=== PATIENT | female | born 1985 | race Caucasian/White ===

== ENCOUNTER 2021-01-28 20:19 | Emergency (ER) | payer BC ==
[~2021-01-28] VITALS: Ht 162.6 cm; Wt 85.0 kg
--- NOTE | 2021-01-28 20:30 | PHYS DOC ---
Past Medical History Past Medical History: No Pertinent History General Adult EDM: Chief Complaint: ALCOHOL INTOXICATION HPI: HPI: Patient is a 35-year-old female presenting via EMS for drug abuse. Patient was at local [employer] event at [facility] and ate numerous tacos and drank numerous alcoholic beverages. at bedside who is primary historian, states that patient smoked a cigar that was " laced with something" and ever since smoking the cigar has been altered. She has had numerous episodes of nonbloody nonbilious emesis. was immediately concerned and called EMS for transfer to our facility for evaluation. On arrival, patient actively throwing up. Denies being in any pain, no falls or trauma. She is otherwise healthy and does not take any medications on a daily basis. Review of Systems: Review of Systems: Fourteen body systems of review of systems have been reviewed. See HPI for pertinent positives and negative responses, other ellis all other systems are n egative, non-pertinent or non-contributory Heart Score: C/O Chest Pain: No HEART Score for Chest Pain: HEART Score for Chest Pain Response (Comments) Value History Slighlty/Non-Suspicious 0 ECG Normal 0 Age < 45 0 Risk Factors No Risk Factors 0 Total 0 Risk Factors: Risk Factors: DM, Current or recent (<one month) smoker, HTN, HLP, family history of CAD, obesity. Risk Scores: Score 0 - 3: 2.5% MACE over next 6 weeks - Discharge Home Score 4 - 6: 20.3% MACE over next 6 weeks - Admit for Clinical Observation Score 7 - 10: 72.7% MACE over next 6 weeks - Early Invasive Strategies Physical Exam: PE: Constitutional: Age-appropriate female actively vomiting on arrival, appears under the influence of unknown drug HENT: Normocephalic, atraumatic, bilateral external ears normal, oropharynx moist, no oral exudates, nose normal. Eyes: PERRLA, EOMI, conjunctiva normal, no discharge. Neck: Normal range of motion, no tenderness, supple, no stridor. Cardiovascular: Heart rate regular, sinus rhythm, no murmurs rubs or gallops Lungs & Thorax: Bilateral breath sounds clear to auscultation Abdomen: Bowel sounds normal, soft, no tenderness, no masses, no pulsatile masses. Nonsurgical abdomen, no peritoneal signs Skin: Warm, dry, no erythema, no rash. Back: No tenderness, no CVA tenderness. Extremities: No tenderness, no cyanosis, no clubbing, ROM intact, no edema. Neurologic: Alert and oriented to person only, cranial nerves II through XII intact, normal motor & sensory function, no focal deficits noted. Psychologic: Affect normal, judgement normal, mood normal. Current Patient Data: Labs: Laboratory Tests Test 01/28/21 20:44 01/28/21 21:20 White Blood Count 8.8 x10^3/uL Red Blood Count 4.39 x10^6/uL Hemoglobin 13.8 g/dL Hematocrit 39.4 % Mean Corpuscular Volume 90 fL Mean Corpuscular Hemoglobin 31 pg Mean Corpuscular Hemoglobin Concent 35 g/dL Red Cell Distribution Width 12.0 % Platelet Count 326 x10^3/uL Neutrophils (%) (Auto) 74 % Lymphocytes (%) (Auto) 21 % Monocytes (%) (Auto) 3 % Eosinophils (%) (Auto) 1 % Basophils (%) (Auto) 1 % Neutrophils # (Auto) 6.5 x10^3/uL Lymphocytes # (Auto) 1.9 x10^3/uL Monocytes # (Auto) 0.3 x10^3/uL Eosinophils # (Auto) 0.1 x10^3/uL Basophils # (Auto) 0.1 x10^3/uL Ethyl Alcohol Level 211 mg/dL Sodium Level 142 mmol/L Potassium Level 3.3 mmol/L Chloride Level 105 mmol/L Carbon Dioxide Level 23 mmol/L Anion Gap 14 Blood Urea Nitrogen 12 mg/dL Creatinine 0.8 mg/dL Estimated GFR (Cockcroft-Gault) 81.2 BUN/Creatinine Ratio 15 Glucose Level 114 mg/dL Calcium Level 8.2 mg/dL Total Bilirubin 0.2 mg/dL Aspartate Amino Transf (AST/SGOT) 15 U/L Alanine Aminotransferase (ALT/SGPT) 26 U/L Alkaline Phosphatase 60 U/L Total Protein 7.5 g/dL Albumin 3.9 g/dL Albumin/Globulin Ratio 1.1 Current Medications Medications (Trade) Dose Ordered Sig/Lauren Route PRN Reason Start Time Stop Time Status Last Admin Dose Admin Sodium Chloride 1,000 ml @ 1,000 mls/hr 1X ONCE IV 01/28/21 21:30 01/28/21 22:29 01/28/21 21:20 Ondansetron HCl (Zofran) 4 mg 1X ONCE IVP 01/28/21 21:30 01/28/21 21:31 DC 01/28/21 21:20 Vital Signs: Vital Signs Date Time Temp Pulse Resp B/P (MAP) Pulse Ox O2 Delivery O2 Flow Rate FiO2 01/28/21 20:34 97.6 88 16 110/59 (76) 98 Room Air 97.6 Vital Signs Date Time Temp Pulse Resp B/P (MAP) Pulse Ox O2 Delivery O2 Flow Rate FiO2 01/28/21 20:34 97.6 88 16 110/59 (76) 98 Room Air 97.6 EKG: EKG: EKG ordered and interpreted by myself at 2107 hrs. as sinus rhythm at 84 bpm, unremarkable intervals, no axis deviation, no ischemic findings, no STEMI Radiology/Procedures: Radiology/Procedures: [] Course & Med Decision Making: Course & Med Decision Making ABCs unremarkable. HPI, physical exam and comprehensive ER work-up nonc oncerning for any emergent or surgical issues. Symptoms improved with IV fluid, Zofran and time Patient reassessed numerous times with improvement in overall mentation and the symptoms. Patient voiced that she wanted to go home I disclosed that she has not provided a urine sample yet so we did not know the substance use for which she abused, patient states she does not want to know and is adamant about leaving and just going home As such, strict return precautions were discussed with patient and at bedside. All questions and concerns addressed prior to ER departure Elif Disclaimer: Elif Disclaimer: This electronic medical record was generated, in whole or in part, using a voice recognition dictation system. Departure Departure Impression: Primary Impression: Drug intoxication Additional Impression: Alcohol use Disposition: HOME / SELF CARE / HOMELESS Condition: IMPROVED Additional Instructions: As discussed prior to your departure, your physical exam and comprehensive ER work-up was nonconcerning for any emergent or surgical issues. Your symptoms improved with IV fluids and nausea medication. You elected to leave the emergency department without obtaining a urine drug screen and so, it is unknown what potential substance was smoked causing your symptoms. Please continue supportive care practices at home such as good fluid intake and using prescribed antinausea medicine as needed. If any concerning signs or symptoms present prior to outpatient follow-up please do not hesitate to come back for repeat evaluation. Is a pleasure to take care of you and I wish you the best going forward Scripts Ondansetron (ONDANSETRON ODT) 4 Mg Tab.rapdis 1 TAB PO PRN Q6-8HRS for nausea, #16 TAB Prov: LUDA MASTERS DO 01/28/21 LUDA MASTERS DO Jan 28, 2021 20:30
[2021-01-28 20:50] LABS: BASO # 0.1 x10^3/uL (0.0-0.2); BASO % 1 % (0-3); EOS # 0.1 x10^3/uL (0.0-0.7); EOS % 1 % (0-3); HEMATOCRIT 39.4 % (36.0-47.0); HEMOGLOBIN 13.8 g/dL (12.0-15.5); LYMPH # 1.9 x10^3/uL (1.0-4.8); LYMPH % 21 % (24-48); MEAN CORPUSCULAR HEMOGLOBIN 31 pg (25-35); MEAN CORPUSCULAR HGB CONC 35 g/dL (31-37); MEAN CORPUSCULAR VOLUME 90 fL (79-100); MONO # 0.3 x10^3/uL (0.0-1.1); MONO % 3 % (0-9); NEUT # 6.5 x10^3/uL (1.8-7.7); NEUT % 74 % (31-73); PLATELET COUNT 326 x10^3/uL (140-400); RED BLOOD COUNT 4.39 x10^6/uL (3.50-5.40); WHITE BLOOD COUNT 8.8 x10^3/uL (4.0-11.0)
[2021-01-28] MEDS ORDERED: IV NORMAL SALINE 1000ML BAG 1,000 ML IV ONE (21:30)
[2021-01-28] MEDS ORDERED: ONDANSETRON PF 4 MG/2 ML VIAL. IVP ONE (21:30)
[2021-01-28 21:44] LABS: CALCIUM 8.2 mg/dL (8.5-10.1); CREATININE 0.8 mg/dL (0.6-1.0); GFR 81.2; POTASSIUM 3.3 mmol/L (3.5-5.1)
[2021-01-28 21:50] LABS: ALBUMIN 3.9 g/dL (3.4-5.0); ALBUMIN/GLOBULIN RATIO 1.1 (1.0-1.7); TOTAL BILIRUBIN 0.2 mg/dL (0.2-1.0); TOTAL PROTEIN 7.5 g/dL (6.4-8.2)
[2021-01-28] MEDS ORDERED: ONDA4TAB12 PO (22:31)
[2021-01-28 22:45] VITALS: BP 106/56
--- NOTE | 2021-01-29 01:19 | EKG ---
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
== END 2021-01-28 22:45 | disposition home or self-care (01) ==
LOC: ER 20:19
DX: R11.10 Vomiting, unspecified (principal); T50.905A Adverse effect of unspecified drugs, medicaments and biological substances, initial encounter; F10.10 Alcohol abuse, uncomplicated; Y90.9 Presence of alcohol in blood, level not specified; Y92.89 Other specified places as the place of occurrence of the external cause
CPT/HCPCS: 36415; 80053; 85025; 93005; 96361; 96374; 99284; G0480; J2405; J7030